=== PATIENT | male | born 1935 | race Caucasian/White ===

== ENCOUNTER → 2018-07-05 | Outpatient (CLI) | payer OTHER, MEDICARE ==
[~2018-07-05] VITALS: Ht 170.2 cm; Wt 58.1 kg
[~2018-07-05] MED LIST: ADULT SUPPOSIT1 EACH RECTAL; CLARITIN10 MG PO; CLONAZEPAM PO; FLEXERIL PO; INDAPAMIDE2.5 MG PO; METHOCARBAMOL500 M1; MILK OF MA400 MG/5 M PO; MIRALAX17 GM PO; OXYCODONE HCL15 MG PO; PREVACID PO; PROAIR HFA8.5 GM INH; PROCTOZONE-HC30 GM TOP; REGLAN 5 MG TAB5 M1 PO; REMERON15 MG PO; VERAMYST10 GM; ZANAFLEX4 MG PO
[2018-07-05 10:50] VITALS: BP 139/73
[2018-07-05 12:06] LABS: HEMATOCRIT 39.7 % (42.0-52.0); HEMOGLOBIN 13.4 gm/dL (14.0-18.0); MCH 29.9 pg (26.0-34.0); MCHC 33.7 g/dL (28.0-37.0); MCV 88.8 fL (80.0-100.0); RBC 4.47 mil/uL (4.50-6.00); RDW 14.2 % (10.5-14.5); WBC 10.4 thou/uL (4.0-11.0)
--- NOTE | 2018-07-05 17:07 | NUR ---
RECIEVED PT FROM IR LAB AT 1530. PT AAOX4 THROUGHOUT STAY. BANDAID ON MID BACK WITH SCANT AMOUNT OF DRAINAGE THAT WAS UNCHANGED THROUGH DISCHARGE. PT TOLERATING WATER AND BITES OF APPLESAUCE. PT ABLE TO STAND AND WALK FROM VERMA TO BATHROOM WITH USE OF WALKER AND STAND BY ASSIST. VS REMAINED STABLE THROUGHOUT RECOVERY. DISCHARGE INSTRUCTIONS REVIEWED WITH PATIENT, PATIENT , AND DAUGHTER. ALL QUESTIONS ANSWERED. PT DISCHARGE TO FAMILY CAR VIA WHEEL CHAIR.
== END ==
LOC: SPEC 08:28
PROVIDERS: Nuclear Medicine Nuclear Cardiology
DX: S32.019A Unspecified fracture of first lumbar vertebra, initial encounter for closed fracture (principal); X58.XXXA Exposure to other specified factors, initial encounter; Y93.9 Activity, unspecified; Y92.89 Other specified places as the place of occurrence of the external cause; Y99.9 Unspecified external cause status; M54.5 Low back pain; M80.08XA Age-related osteoporosis with current pathological fracture, vertebra(e), initial encounter for fracture; Z80.51 Family history of malignant neoplasm of kidney; Z80.52 Family history of malignant neoplasm of bladder; Z90.5 Acquired absence of kidney; M19.90 Unspecified osteoarthritis, unspecified site; Z98.890 Other specified postprocedural states; F41.9 Anxiety disorder, unspecified; J43.9 Emphysema, unspecified; Z87.891 Personal history of nicotine dependence; N40.0 Benign prostatic hyperplasia without lower urinary tract symptoms